=== PATIENT | female | born 1975 | race Native Hawaiian/Other Pacific Islander ===

== ENCOUNTER 2021-05-05 13:08 | Outpatient (CLI) | payer OTHER | END 2021-05-05 23:04 | disposition home or self-care (01) | LOC: RESP 13:08 | PROVIDERS: ATTEND Specialist | DX: G40.209 Localization-related (focal) (partial) symptomatic epilepsy and epileptic syndromes with complex partial seizures, not intractable, without status epilepticus (principal) ==